=== PATIENT | male | born 1960 | race Caucasian/White ===

== ENCOUNTER 2024-10-27 15:36 | Inpatient (IN) ==
[2024-10-27 16:15] LABS: Hematocrit 18.4 % (38-53); Hemoglobin 5.4 g/dL (13.2-16.3); Mean Corpuscular Hemoglobin 20.2 pg (27-33); Mean Corpuscular Hgb Conc 29.1 g/dL (31-36); Mean Corpuscular Volume 69.5 fL (80-97); Mean Platelet Volume 8.8 fL (7.5-11.2); Platelet Count 251 10^3/uL (150-450); Red Blood Count 2.65 10^6/uL (4.06-5.63); Red Cell Distribution Width 24.7 % (12-17); White Blood Count 11.9 10^3/uL (3.6-10.2)
[2024-10-27] MEDS: Pantoprazole 80 mg in NS BAG 80 MG/250 ML BAG IV SCH (16:25)
[2024-10-27] MEDS ORDERED: Iohexol 350 (CONTRAST) 500 ML MDV IV ONE (16:32)
[2024-10-27 16:55] LABS: Albumin 3.4 g/dL (3.5-5.7); Creatinine, Serum 0.85 mg/dL (0.67-1.17); Globulin 1.7 g/dL (2-4); Potassium 4.6 mmol/L (3.5-5.0); Total Bilirubin 0.6 mg/dL (0.2-1.0); Total Protein 5.1 g/dL (6.4-8.9); eGFR CKD-EPI 95.8 (>60)
[2024-10-27 18:37] LABS: ABS Basophils 0.1 10^3/uL (0.0-0.1); ABS Lymphocytes 0.9 10^3/uL (1.0-4.8); ABS Monocytes 0.6 10^3/uL (0.0-1.1); ABS Neutrophils 10.3 10^3/uL (1.5-7.6); ABS Nucleated RBC 0.04 10^3/ul; Acanthocytes 1+; Burr Cells 1+; Hypochromasia 1+; Lymphocyte % 7.2 %; Microcytosis 3+; Nucleated Red Blood Cells % 0.3 %/100WBC (0.0-0.8); Polychromasia 2+; Target Cells 1+; Tear Drop Cells 1+
[2024-10-27 21:45] LABS: TSH Ultra Thyroid Stim Horm 0.89 mcIU/mL (0.34-5.60)
[2024-10-27 21:56] LABS: Folate 11.98 ng/mL (5.90-24.80)
[2024-10-27] MEDS ORDERED: Albuterol HFA INHALER 8 gm MDI INH PRN (21:56)
[2024-10-27 22:42] LABS: Immature Retic Fraction 0.64
[2024-10-27 22:46] LABS: Corrected Retic Count 1.4 % (0.5-2.2); Hematocrit for Retic CNT 18.4 % (38-53); RBC Retic Count 2.63 10^6/ul (4.06-5.63)
[2024-10-27 23:30] LABS: Hematocrit 23.5 % (38-53); Hemoglobin 7.3 g/dL (13.2-16.3)
[2024-10-28 06:24] LABS: Calcium 7.9 mg/dL (8.6-10.3); Creatinine, Serum 0.83 mg/dL (0.67-1.17); Magnesium 1.6 mg/dL (1.9-2.7); Potassium 4.1 mmol/L (3.5-5.0); eGFR CKD-EPI 96.5 (>60)
[2024-10-28 06:28] LABS: ABS Eosinophils 0.1 10^3/uL (0.0-0.5); ABS Monocytes 0.7 10^3/uL (0.0-1.1); ABS Neutrophils 8.2 10^3/uL (1.5-7.6); ABS Nucleated RBC 0.06 10^3/ul; Eosinophil % 0.6 %; Hematocrit 22.4 % (38-53); Hemoglobin 6.9 g/dL (13.2-16.3); Lymphocyte % 18.2 %; Mean Corpuscular Hemoglobin 22.4 pg (27-33); Mean Corpuscular Hgb Conc 30.6 g/dL (31-36); Mean Platelet Volume 8.9 fL (7.5-11.2); Nucleated Red Blood Cells % 0.5 %/100WBC (0.0-0.8); Platelet Count 229 10^3/uL (150-450); Red Blood Count 3.07 10^6/uL (4.06-5.63); Red Cell Distribution Width 22.9 % (12-17)
[2024-10-28 07:14] LABS: Ferritin 6.5 ng/mL (24-336)
[2024-10-28 08:05] LABS: INR 1.2 (0.85-1.14)
[2024-10-28 12:55] LABS: Hematocrit 26.3 % (38-53); Hemoglobin 8.3 g/dL (13.2-16.3)
[2024-10-28] MEDS: Magnesium Sulfate 2 gm BAG 2 GM/50 ML BAG IVPB ONE (13:07)
[2024-10-28] MEDS ORDERED: Lidocaine 2% PF 5 ML VIAL ONE ×2 (15:41→16:00)
[2024-10-28] MEDS ORDERED: Phenylephrine IV 10 MG/ML 1 ml VIAL ONE (16:01)
[2024-10-28 18:13] LABS: Hematocrit 24.3 % (38-53); Hemoglobin 7.7 g/dL (13.2-16.3)
[2024-10-29 06:41] LABS: ABS Basophils 0.1 10^3/uL (0.0-0.1); ABS Eosinophils 0.1 10^3/uL (0.0-0.5); ABS Lymphocytes 1.5 10^3/uL (1.0-4.8); ABS Monocytes 0.9 10^3/uL (0.0-1.1); ABS Neutrophils 7.9 10^3/uL (1.5-7.6); ABS Nucleated RBC 0.02 10^3/ul; Eosinophil % 1.2 %; Hematocrit 22.3 % (38-53); Hemoglobin 7.2 g/dL (13.2-16.3); Lymphocyte % 14.1 %; Mean Corpuscular Hgb Conc 32.5 g/dL (31-36); Mean Corpuscular Volume 73.8 fL (80-97); Mean Platelet Volume 8.5 fL (7.5-11.2); Nucleated Red Blood Cells % 0.2 %/100WBC (0.0-0.8); Platelet Count 183 10^3/uL (150-450); Red Blood Count 3.02 10^6/uL (4.06-5.63); Red Cell Distribution Width 24.2 % (12-17); White Blood Count 10.5 10^3/uL (3.6-10.2)
[2024-10-29 07:16] LABS: Albumin 3.5 g/dL (3.5-5.7); Albumin/Globulin Ratio 1.9 (1-3); Calcium 7.7 mg/dL (8.6-10.3); Creatinine, Serum 0.71 mg/dL (0.67-1.17); Globulin 1.8 g/dL (2-4); Magnesium 1.9 mg/dL (1.9-2.7); Potassium 3.8 mmol/L (3.5-5.0); Total Bilirubin 0.9 mg/dL (0.2-1.0); Total Protein 5.3 g/dL (6.4-8.9); eGFR CKD-EPI 101.2 (>60)
[2024-10-29] MEDS: Pantoprazole VIAL 40 MG VIAL IV SCH (10:07)
[2024-10-29] MEDS: Ferric Gluconate IV 250 MG in NS 0.9% 250 ml 200 ML IVPB SCH (10:16)
[2024-10-29 13:49] LABS: Hematocrit 21.8 % (38-53); Hemoglobin 6.8 g/dL (13.2-16.3)
[2024-10-29 19:04] LABS: Hematocrit 25.8 % (38-53); Hemoglobin 8.4 g/dL (13.2-16.3)
[2024-10-29 23:01] LABS: Hematocrit 25.8 % (38-53); Hemoglobin 8.3 g/dL (13.2-16.3)
[2024-10-30 06:45] LABS: Hematocrit 25.8 % (38-53); Hemoglobin 8.5 g/dL (13.2-16.3); Red Blood Count 3.29 10^6/uL (4.06-5.63); White Blood Count 10.4 10^3/uL (3.6-10.2)
[2024-10-30 07:02] LABS: Calcium 7.8 mg/dL (8.6-10.3); Creatinine, Serum 0.68 mg/dL (0.67-1.17); Magnesium 1.9 mg/dL (1.9-2.7); Potassium 3.8 mmol/L (3.5-5.0); eGFR CKD-EPI 102.5 (>60)
[2024-10-30 07:33] LABS: ABS Eosinophils 0.1 10^3/uL (0.0-0.5); ABS Lymphocytes 1.3 10^3/uL (1.0-4.8); ABS Monocytes 0.8 10^3/uL (0.0-1.1); ABS Neutrophils 8.1 10^3/uL (1.5-7.6); ABS Nucleated RBC 0.06 10^3/ul; Anisocytosis 2+; Eosinophil % 1.1 %; Lymphocyte % 12.9 %; Mean Corpuscular Hemoglobin 25.9 pg (27-33); Mean Corpuscular Hgb Conc 33.1 g/dL (31-36); Mean Corpuscular Volume 78.4 fL (80-97); Mean Platelet Volume 9.4 fL (7.5-11.2); Microcytosis 1+; Nucleated Red Blood Cells % 0.5 %/100WBC (0.0-0.8); Platelet Count 179 10^3/uL (150-450); Polychromasia 1+; Red Cell Distribution Width 27.9 % (12-17)
[2024-10-30] MEDS: Morphine ORAL CONCENTRATE 5 MG/0.25 ML ORAL.SYRIN SL ONE (09:46)
[2024-10-30 10:48] LABS: Hematocrit 26.8 % (38-53); Hemoglobin 8.6 g/dL (13.2-16.3)
[2024-10-30] MEDS: Iohexol 350 (CONTRAST) 500 ML MDV IV ONE (12:22)
[2024-10-30 14:14] LABS: Hematocrit 25.5 % (38-53); Hemoglobin 8.3 g/dL (13.2-16.3)
[2024-10-30] MEDS: HYDROmorphone 0.5 MG/0.5 ML SYRINGE IV SLOW PU PRN (15:12)
[2024-10-30] MEDS: HYDROmorphone 1 MG/1 ML SYRINGE IV SLOW PU PRN (18:26)
[2024-10-30] MEDS: Magnesium CITRATE LIQ 300 ML BTL PO ONE (21:41)
[2024-10-31 06:39] LABS: Calcium 8.2 mg/dL (8.6-10.3); Creatinine, Serum 0.63 mg/dL (0.67-1.17); Magnesium 2.1 mg/dL (1.9-2.7); Phosphorus 2.7 mg/dL (2.5-5.0); Potassium 3.6 mmol/L (3.5-5.0); eGFR CKD-EPI 104.9 (>60)
[2024-10-31 08:27] LABS: Hematocrit 27.7 % (38-53); Mean Corpuscular Hemoglobin 26.2 pg (27-33); Mean Corpuscular Hgb Conc 32.4 g/dL (31-36); Mean Corpuscular Volume 80.9 fL (80-97); Mean Platelet Volume 9.3 fL (7.5-11.2); Platelet Count 188 10^3/uL (150-450); Red Blood Count 3.43 10^6/uL (4.06-5.63); Red Cell Distribution Width 29.2 % (12-17); White Blood Count 10.6 10^3/uL (3.6-10.2)
[2024-10-31] MEDS ORDERED: HYDROmorphone 0.5 MG/0.5 ML SYRINGE IV SLOW PU PRN (20:27)
[2024-11-01] MEDS: Labetalol IV 5 MG/ML 20 ml VIAL IV PUSH ONE (00:32)
[2024-11-01 07:02] LABS: Hematocrit 26.6 % (38-53); Hemoglobin 8.7 g/dL (13.2-16.3); Mean Corpuscular Hemoglobin 26.1 pg (27-33); Mean Corpuscular Hgb Conc 32.7 g/dL (31-36); Mean Corpuscular Volume 79.7 fL (80-97); Mean Platelet Volume 9.4 fL (7.5-11.2); Platelet Count 202 10^3/uL (150-450); Red Blood Count 3.33 10^6/uL (4.06-5.63); Red Cell Distribution Width 31.4 % (12-17); White Blood Count 8.5 10^3/uL (3.6-10.2)
[2024-11-01 07:23] LABS: Creatinine, Serum 0.63 mg/dL (0.67-1.17); Magnesium 1.9 mg/dL (1.9-2.7); Potassium 3.4 mmol/L (3.5-5.0); eGFR CKD-EPI 104.9 (>60)
[2024-11-01] MEDS: KCL 20 MEQ/100 ML IVPREMIX 20 MEQ/100 ML BAG IV SCH (08:40)
[2024-11-01 13:07] VITALS: BP 174/73
== END 2024-11-01 17:05 | disposition home or self-care (01) | DRG 378 ==
LOC: ED 15:36 → EDHOLD 15:36 → SUATTDRO 20:17 → MED 21:30
PROVIDERS: ADMIT Internal Medicine; ATTEND Internal Medicine